=== PATIENT | male | born 1970 | race Two or more races ===

== ENCOUNTER 2018-12-24 18:45 | Emergency (ER) | payer MEDICAID ==
[~2018-12-24] VITALS: Ht 170.2 cm; Wt 88.0 kg
[2018-12-24 19:06] VITALS: BP 145/99
== END 2018-12-24 21:00 | disposition left against medical advice (07) ==
LOC: ER 18:45
DX: Z53.21 Procedure and treatment not carried out due to patient leaving prior to being seen by health care provider (principal)